=== PATIENT | female | born 1940 ===

== ENCOUNTER 2020-06-11 17:43 | Inpatient (IN) ==
[2020-06-11] MEDS ORDERED: NOREPINEPHRINE 4 MG/4 ML VIAL IV ONE (19:43)
[2020-06-11] MEDS ORDERED: EPINEPHrine 1 MG/ML VIAL ONE (19:46)
[2020-06-11 20:26] LABS: Basophils # 0.1 10*3/uL (0.0-0.2); Basophils % 0.5 % (0.0-0.8); Hematocrit 33.4 VOL% (35.7-47.0); Hemoglobin 9.9 GM/DL (12.0-16.0); Immature Granulocytes % 3.8 %; Lymphocytes # 2.1 10*3/uL (1.4-4.0); Lymphocytes % 10.2 % (21.3-54.2); Mean Corpuscular HGB Conc 29.6 GM/DL (32-36); Mean Corpuscular Volume 103.1 FL (87-102); Mean Platelet Volume 10.6 FL (9.6-12.0); Monocytes % 14.6 % (1.7-12.7); Neutrophils % 70.9 % (38.7-73.9); Platelet Count 286 T/CUMM (130-400); Red Blood Count 3.24 MC/CUMM (3.8-5.5); Red Cell Distribution Width 14.6 % (9.3-17.3); White Blood Count 20.9 T/CUMM (4-12)
[2020-06-11 20:27] LABS: ABG Base Excess -22.5 MMOL/L (-2.5-2.5); ABG HCO3 8.4 MMOL/L (20-26); ABG Oxygen Saturation 98.9 % (95-100); ABG PCO2 28.7 MM HG (35-48); ABG TCO2 7.3 MMOL/L (23-27)
[2020-06-11 20:29] LABS: ABG PH 7.024 (7.35-7.45)
[2020-06-11 20:41] LABS: Calcium 7.7 MG/DL (8.5-10.1); Osmolality,Calculated 297.4 MOS/KG (273-304)
[2020-06-11] MEDS: NOREPINEPHRINE 8 MG in SODIUM CHLORIDE 0.9% 242 ML IV PRN (20:48)
[2020-06-11] MEDS ORDERED: ONDANSETRON 4 MG/2 ML VIAL IV PRN (21:06)
[2020-06-11] MEDS ORDERED: ALBUTEROL 2.5 MG/3 ML NEB RESP TX PRN (21:06)
[2020-06-11 21:07] LABS: Anisocytosis 3+; Burr Cells 3+; Lymphocytes 10 % (20-55); Microcytosis 1+; Nucleated Red Blood Cells 1 (0-5); Segmented Neutrophils 78 % (50-85); Total Cells Counted 100
[2020-06-11] MEDS ORDERED: AMIKACIN 500 MG in SODIUM CHLORIDE 0.9% 100 ML IV ONE (22:00)
[2020-06-11] MEDS: SODIUM BICARB INJ 100 MEQ in STERILE WATER INJ 1,000 ML IV SCH (22:39)
[2020-06-11] MEDS: PANTOPRAZOLE 40 MG VIAL IV SCH (23:16)
[2020-06-11] MEDS: FLUDROCORTISONE 0.1 MG TABLET PER TUBE SCH (23:37)
[2020-06-11] MEDS: HYDROCORTISONE 100 MG VIAL IV SCH (23:43)
[2020-06-12 00:13] LABS: Apearance,Urine Turbid (Clear); Bacteria,Urine Many /HPF (Few); Bilirubin,Urine Negative (Negative); Blood, Urine Small mg/dL (Negative); Glucose,Urine (UA) Negative (Negative); Ketones,Urine 5 mg/dL (Negative); Nitrite,Urine Negative (Negative); Protein,Urine 100 MG/DL; RBC,Urine 102 /HPF (0-4); Renal Epithelial Cells,Urine Moderate /HPF (<1); Urine Color Yellow (Yellow); Urine Specific Gravity 1.021 (1.001-1.035); Urine Urobilinogen < 2.0 EU/DL (0.2-1.0); WBC,Urine 6667 /HPF (0-6)
[2020-06-12] MEDS: ENOXAPARIN 30 MG/0.3 ML SYRINGE SUBCUT SCH ×2 (00:22→20:55)
[2020-06-12] MEDS: MEROPENEM 500 MG in SODIUM CHLORIDE 0.9% 100 ML IV SCH ×3 (00:24→21:00)
[2020-06-12] MEDS: NOREPINEPHRINE 8 MG in SODIUM CHLORIDE 0.9% 242 ML IV PRN ×2 (00:33→09:29)
[2020-06-12 04:19] LABS: Basophils % 0.1 % (0.0-0.8); Hematocrit 34.2 VOL% (35.7-47.0); Hemoglobin 10.5 GM/DL (12.0-16.0); Immature Granulocytes % 4.4 %; Immature Granulocytes Absolute 0.77 #; Lymphocytes # 0.8 10*3/uL (1.4-4.0); Lymphocytes % 4.6 % (21.3-54.2); Mean Corpuscular HGB Conc 30.7 GM/DL (32-36); Mean Corpuscular Volume 100.9 FL (87-102); Mean Platelet Volume 10.9 FL (9.6-12.0); Monocytes % 16.3 % (1.7-12.7); Neutrophils % 74.6 % (38.7-73.9); Platelet Count 297 T/CUMM (130-400); Red Blood Count 3.39 MC/CUMM (3.8-5.5); Red Cell Distribution Width 14.6 % (9.3-17.3); White Blood Count 17.3 T/CUMM (4-12)
[2020-06-12 04:32] LABS: INR 1.2; PT Patient Result 12.5 SECS (9.8-11.9)
[2020-06-12 04:33] LABS: Albumin 2.6 G/DL (3.4-5.0); Bilirubin,Total 0.5 MG/DL (0.2-1.0); Calcium 7.6 MG/DL (8.5-10.1); Osmolality,Calculated 300.4 MOS/KG (273-304); Total Protein 5.7 G/DL (6.4-8.3)
[2020-06-12 04:38] LABS: Troponin I 0.407 NG/ML (0.00-0.045)
[2020-06-12 06:01] LABS: Band Neutrophils 7 % (0-10); Lymphocytes 9 % (20-55); Metamyelocytes 9 %; Myelocytes 3 %; Nucleated Red Blood Cells 0 (0-5); Platelet Estimate Normal; Segmented Neutrophils 58 % (50-85); Total Cells Counted 100
[2020-06-12 06:02] LABS: Anisocytosis 2+; Macrocytosis 2+
[2020-06-12 06:15] LABS: ABG Base Excess -22.1 MMOL/L (-2.5-2.5); ABG HCO3 8.6 MMOL/L (20-26); ABG Oxygen Saturation 99.1 % (95-100); ABG PCO2 24.1 MM HG (35-48); ABG TCO2 6.8 MMOL/L (23-27)
[2020-06-12 06:21] LABS: ABG PH 7.072 (7.35-7.45)
[2020-06-12] MEDS: LEVOTHYROXINE 100 MCG VIAL IV SCH (07:19)
[2020-06-12] MEDS: HYDROCORTISONE 100 MG VIAL IV SCH ×3 (07:20→23:32)
[2020-06-12] MEDS: FLUDROCORTISONE 0.1 MG TABLET PER TUBE SCH ×2 (08:56→20:55)
[2020-06-12] MEDS ORDERED: PANTOPRAZOLE 40 MG TABLET PO SCH (09:00)
[2020-06-12] MEDS ORDERED: DEXTROSE 10% 250 ML BAG IV PRN (09:12)
[2020-06-12] MEDS ORDERED: GLUCAGON 1 MG VIAL IM PRN (09:12)
[2020-06-12] MEDS: SODIUM BICARB INJ 100 MEQ in STERILE WATER INJ 1,000 ML IV SCH (09:28)
[2020-06-12] MEDS: INSULIN LISPRO 100 UNIT/ML SUBCUT SCH ×3 (12:22→23:39)
[2020-06-12 12:38] LABS: ABG Base Excess -21.5 MMOL/L (-2.5-2.5); ABG HCO3 6.7 MMOL/L (20-26); ABG Oxygen Saturation 98.7 % (95-100); ABG TCO2 7.4 MMOL/L (23-27)
[2020-06-12 12:39] LABS: ABG PH 7.085 (7.35-7.45)
[2020-06-12] MEDS: NOREPINEPHRINE 16 MG in SODIUM CHLORIDE 0.9% 234 ML IV PRN ×2 (13:15→19:54)
[2020-06-12] MEDS ORDERED: SODIUM BICARBONATE 50 MEQ/50 ML VIAL IV ONE (13:20)
[2020-06-12 15:15] LABS: Calcium 7.4 MG/DL (8.5-10.1); Osmolality,Calculated 296.7 MOS/KG (273-304)
[2020-06-12] MEDS: SODIUM BICARB INJ 150 MEQ in STERILE WATER INJ 850 ML IV SCH (16:01)
[2020-06-12] MEDS: PANTOPRAZOLE 40 MG VIAL IV SCH (20:55)
[2020-06-13] MEDS: NOREPINEPHRINE 16 MG in SODIUM CHLORIDE 0.9% 234 ML IV PRN ×4 (01:51→22:02)
[2020-06-13] MEDS: SODIUM BICARB INJ 150 MEQ in STERILE WATER INJ 850 ML IV SCH ×4 (03:33→22:09)
[2020-06-13 05:11] LABS: Basophils # 0.1 10*3/uL (0.0-0.2); Basophils % 0.4 % (0.0-0.8); Hematocrit 27.7 VOL% (35.7-47.0); Hemoglobin 8.5 GM/DL (12.0-16.0); Immature Granulocytes Absolute 1.32 #; Lymphocytes # 0.7 10*3/uL (1.4-4.0); Lymphocytes % 2.7 % (21.3-54.2); Mean Corpuscular HGB Conc 30.7 GM/DL (32-36); Mean Corpuscular Volume 102.2 FL (87-102); Mean Platelet Volume 10.8 FL (9.6-12.0); Monocytes % 11.8 % (1.7-12.7); NRBC # 0.11 10*3/uL; Neutrophils % 80.1 % (38.7-73.9); Platelet Count 226 T/CUMM (130-400); Red Blood Count 2.71 MC/CUMM (3.8-5.5); Red Cell Distribution Width 15.1 % (9.3-17.3); White Blood Count 26.6 T/CUMM (4-12)
[2020-06-13 05:16] LABS: ABG Base Excess -22.8 MMOL/L (-2.5-2.5); ABG HCO3 8.2 MMOL/L (20-26); ABG Oxygen Saturation 98.7 % (95-100); ABG PCO2 21.2 MM HG (35-48)
[2020-06-13 05:23] LABS: ABG PH 7.075 (7.35-7.45)
[2020-06-13 05:33] LABS: Band Neutrophils 5 % (0-10); Burr Cells Slight; Hypochromasia 1+; Lymphocytes 4 % (20-55); Ovalocytes Slight; Platelet Estimate Adequate; Segmented Neutrophils 81 % (50-85); Total Cells Counted 100
[2020-06-13 05:34] LABS: Microcytosis 1+
[2020-06-13 05:42] LABS: Albumin 2.1 G/DL (3.4-5.0); Bilirubin,Total 0.8 MG/DL (0.2-1.0); Osmolality,Calculated 297.7 MOS/KG (273-304); Total Protein 5.2 G/DL (6.4-8.3)
[2020-06-13] MEDS: LEVOTHYROXINE 100 MCG VIAL IV SCH (06:08)
[2020-06-13] MEDS: INSULIN LISPRO 100 UNIT/ML SUBCUT SCH ×3 (06:08→18:37)
[2020-06-13] MEDS: HYDROCORTISONE 100 MG VIAL IV SCH ×3 (06:10→23:40)
[2020-06-13] MEDS ORDERED: SODIUM CHLORIDE 0.9% 1,000 ML IV ONE (08:06)
[2020-06-13] MEDS: PHENYLEPHRINE DRIP 40 MG/250 ML PREMIX IV PRN ×3 (08:38→15:21)
[2020-06-13] MEDS: FLUDROCORTISONE 0.1 MG TABLET PER TUBE SCH ×2 (09:16→21:06)
[2020-06-13] MEDS ORDERED: HEPARIN 5,000 UNIT/1 ML VIAL ONE (12:56)
[2020-06-13] MEDS ORDERED: BUPIVACAINE 0.25% /EPI 10 ML VIAL ONE (12:56)
[2020-06-13] MEDS ORDERED: LIDOCAINE 1%/EPI INJ 20 ML VIAL ONE (12:56)
[2020-06-13] MEDS ORDERED: TISSUE ADHESIVE 1 EACH APPLICATOR TOP ONE (12:56)
[2020-06-13] MEDS ORDERED: SODIUM CHLORIDE 0.9% 1,000 ML IV PRN (13:23)
[2020-06-13] MEDS ORDERED: VASOPRESSIN 20 UNITS/ML VIAL ONE (14:04)
[2020-06-13 14:07] LABS: ABG Base Excess -13.9 MMOL/L (-2.5-2.5); ABG HCO3 13.5 MMOL/L (20-26); ABG Oxygen Saturation 99.4 % (95-100); ABG PCO2 45.3 MM HG (35-48); ABG TCO2 14.4 MMOL/L (23-27); Glucose Heart Surgery 121 MG/DL (74-106); Hematocrit Heart Surgery 22.5 PERCENT (37-47); Hemoglobin Heart Surgery 7.2 G/DL (12.0-16.0); Ionized Calcium Arterial 1.03 MMOL/L (1.21-1.46); PCO2 Patient Temp Arterial 45.3 MMHG; Patient Temperature 37 CELCIUS; Potassium Heart/CVR 4.3 MMOL/L (3.5-5.1); Sodium Heart/CVR 144 MMOL/L (135-145)
[2020-06-13] MEDS ORDERED: ALBUMIN 5% 12.5 GM/250 ML VIAL IV ONE (14:44)
[2020-06-13] MEDS ORDERED: SODIUM BICARBONATE 50 MEQ/50 ML VIAL IV ONE (14:44)
[2020-06-13] MEDS ORDERED: CALCIUM CHLORIDE 1,000 MG/10 ML VIAL IV ONE (14:44)
[2020-06-13] MEDS ORDERED: SEVOFLURANE 1 UNIT/15 MINUTE INH ONE (14:44)
[2020-06-13] MEDS ORDERED: SODIUM CHLORIDE 0.9% 2,000 ML IV ONE (14:45)
[2020-06-13] MEDS ORDERED: MIDAZOLAM 2 MG/2 ML VIAL ONE (14:45)
[2020-06-13] MEDS ORDERED: SODIUM CHLORIDE 0.9% 500 ML IV ONE (14:45)
[2020-06-13] MEDS ORDERED: ROCURONIUM 100 MG/10 ML VIAL IV ONE (14:45)
[2020-06-13] MEDS ORDERED: EPINEPHrine 1 MG/ML VIAL ONE (14:45)
[2020-06-13] MEDS ORDERED: PHENYLEPHRINE 10 MG/1 ML VIAL IV ONE ×2 (14:45)
[2020-06-13] MEDS ORDERED: HEPARIN 10,000 UNIT/10 ML VIAL IV SCH (16:00)
[2020-06-13 17:00] LABS: Hepatitis B Core IgM Quant 0.12 Index; Hepatitis B Surface Ag Quant < 0.10 Index; Hepatitis B Surface Ag Result Negative (Negative); Hepatitis C Virus Ab Quant 0.05 Index; Hepatitis C Virus Ab Result Negative (Negative)
[2020-06-13] MEDS: PHENYLEPHRINE INJ 160 MG in SODIUM CHLORIDE 0.9% 234 ML IV PRN (19:00)
[2020-06-13] MEDS: ENOXAPARIN 30 MG/0.3 ML SYRINGE SUBCUT SCH (21:06)
[2020-06-13] MEDS: PANTOPRAZOLE 40 MG VIAL IV SCH (21:06)
[2020-06-13] MEDS: MEROPENEM 500 MG in SODIUM CHLORIDE 0.9% 100 ML IV SCH (21:06)
[2020-06-13] MEDS: MIDAZOLAM 100 MG in SODIUM CHLORIDE 0.9% 80 ML IV PRN (22:00)
[2020-06-14 00:23] LABS: ABG Base Excess -13.4 MMOL/L (-2.5-2.5); ABG HCO3 11.4 MMOL/L (20-26); ABG Oxygen Saturation 98.6 % (95-100); ABG PCO2 23.4 MM HG (35-48); ABG PH 7.304 (7.35-7.45); ABG PO2 168.8 MM HG (80-95); ABG TCO2 12.1 MMOL/L (23-27); Glucose Heart Surgery 68 MG/DL (74-106); Hemoglobin Heart Surgery 10.2 G/DL (12.0-16.0); Potassium Heart/CVR 3.8 MMOL/L (3.5-5.1)
[2020-06-14] MEDS: INSULIN LISPRO 100 UNIT/ML SUBCUT SCH ×4 (00:39→17:10)
[2020-06-14] MEDS ORDERED: SODIUM BICARBONATE 50 MEQ/50 ML VIAL IV ONE ×2 (00:42→06:19)
[2020-06-14] MEDS ORDERED: ALBUMIN 25% 25 GM in PREMIX 1 EACH IV ONE (01:19)
[2020-06-14] MEDS ORDERED: SODIUM CHLORIDE 0.9% 500 ML IV ONE (01:56)
[2020-06-14] MEDS ORDERED: DEXTROSE 50% 25 GM/50 ML VIAL IV ONE (02:17)
[2020-06-14] MEDS ORDERED: ALBUMIN 5% 12.5 GM in PREMIX 1 EACH IV ONE (02:25)
[2020-06-14] MEDS ORDERED: DEXTROSE 50% 25 GM/50 ML VIAL IV PRN (02:26)
[2020-06-14] MEDS ORDERED: ALBUMIN 5% 12.5 GM/250 ML VIAL IV ONE (02:29)
[2020-06-14 05:16] LABS: ABG Base Excess -14.3 MMOL/L (-2.5-2.5); ABG HCO3 13.4 MMOL/L (20-26); ABG Oxygen Saturation 98.2 % (95-100); ABG PH 7.314 (7.35-7.45); ABG TCO2 9.8 MMOL/L (23-27)
[2020-06-14 05:18] LABS: ABG PCO2 20.9 MM HG (35-48)
[2020-06-14 05:20] LABS: Basophils # 0.1 10*3/uL (0.0-0.2); Basophils % 0.5 % (0.0-0.8); Hematocrit 30.3 VOL% (35.7-47.0); Hemoglobin 9.5 GM/DL (12.0-16.0); Immature Granulocytes % 3.4 %; Immature Granulocytes Absolute 0.85 #; Lymphocytes # 0.7 10*3/uL (1.4-4.0); Lymphocytes % 2.8 % (21.3-54.2); Mean Corpuscular HGB Conc 31.4 GM/DL (32-36); Mean Corpuscular Volume 89.1 FL (87-102); Mean Platelet Volume 9.9 FL (9.6-12.0); Monocytes % 7.6 % (1.7-12.7); NRBC # 0.24 10*3/uL; Neutrophils % 85.7 % (38.7-73.9); Platelet Count 139 T/CUMM (130-400); Red Cell Distribution Width 23.6 % (9.3-17.3); White Blood Count 25.2 T/CUMM (4-12)
[2020-06-14 05:37] LABS: Calcium 6.3 MG/DL (8.5-10.1); Osmolality,Calculated 293.4 MOS/KG (273-304)
[2020-06-14 05:39] LABS: Band Neutrophils 5 % (0-10); Lymphocytes 3 % (20-55); Nucleated Red Blood Cells 4 (0-5); Segmented Neutrophils 89 % (50-85); Total Cells Counted 100
[2020-06-14 05:40] LABS: Hypochromasia 1+
[2020-06-14 05:42] LABS: Microcytosis Slight
[2020-06-14] MEDS: LEVOTHYROXINE 100 MCG VIAL IV SCH (06:05)
[2020-06-14] MEDS: SODIUM BICARB INJ 150 MEQ in STERILE WATER INJ 850 ML IV SCH ×4 (06:17→18:19)
[2020-06-14] MEDS: HYDROCORTISONE 100 MG VIAL IV SCH ×3 (06:29→23:56)
[2020-06-14] MEDS: NOREPINEPHRINE 16 MG in SODIUM CHLORIDE 0.9% 234 ML IV PRN ×2 (06:31→22:30)
[2020-06-14] MEDS: FLUDROCORTISONE 0.1 MG TABLET PER TUBE SCH ×2 (09:16→21:23)
[2020-06-14] MEDS ORDERED: AMIODARONE INJ 150 MG in DEXTROSE 5% 100 ML IV ONE (12:26)
[2020-06-14] MEDS ORDERED: AMIODARONE 450 MG/9 ML VIAL IV ONE (12:29)
[2020-06-14] MEDS ORDERED: AMIODARONE 150 MG/3 ML VIAL ONE (12:29)
[2020-06-14] MEDS ORDERED: AMIODARONE INJ 450 MG in DEXTROSE 5% 241 ML IV SCH (12:30)
[2020-06-14] MEDS: MIDAZOLAM 100 MG in SODIUM CHLORIDE 0.9% 80 ML IV PRN (13:55)
[2020-06-14] MEDS: PHENYLEPHRINE INJ 160 MG in SODIUM CHLORIDE 0.9% 234 ML IV PRN (17:20)
[2020-06-14] MEDS: AMIODARONE INJ 450 MG in DEXTROSE 5% 241 ML IV SCH (19:00)
[2020-06-14] MEDS: MEROPENEM 500 MG in SODIUM CHLORIDE 0.9% 100 ML IV SCH (21:23)
[2020-06-14] MEDS: PANTOPRAZOLE 40 MG VIAL IV SCH (21:23)
[2020-06-14] MEDS: ENOXAPARIN 30 MG/0.3 ML SYRINGE SUBCUT SCH (21:23)
[2020-06-15] MEDS: INSULIN LISPRO 100 UNIT/ML SUBCUT SCH ×4 (00:31→18:09)
[2020-06-15] MEDS: AMIODARONE INJ 450 MG in DEXTROSE 5% 241 ML IV SCH ×2 (00:52→13:06)
[2020-06-15] MEDS: PHENYLEPHRINE INJ 160 MG in SODIUM CHLORIDE 0.9% 234 ML IV PRN (01:05)
[2020-06-15] MEDS: SODIUM BICARB INJ 150 MEQ in STERILE WATER INJ 850 ML IV SCH ×2 (02:05→04:19)
[2020-06-15 05:23] LABS: ABG Base Excess -12.4 MMOL/L (-2.5-2.5); ABG HCO3 14.7 MMOL/L (20-26); ABG Oxygen Saturation 94.7 % (95-100); ABG PH 7.413 (7.35-7.45); ABG PO2 76.4 MM HG (80-95); ABG TCO2 9.9 MMOL/L (23-27)
[2020-06-15 05:38] LABS: Basophils # 0.2 10*3/uL (0.0-0.2); Basophils % 0.7 % (0.0-0.8); Hematocrit 29.3 VOL% (35.7-47.0); Hemoglobin 9.6 GM/DL (12.0-16.0); Immature Granulocytes % 6.9 %; Lymphocytes # 0.4 10*3/uL (1.4-4.0); Lymphocytes % 1.8 % (21.3-54.2); Mean Corpuscular HGB Conc 32.8 GM/DL (32-36); Mean Corpuscular Volume 86.9 FL (87-102); Monocytes % 3.9 % (1.7-12.7); NRBC # 0.22 10*3/uL; Neutrophils % 86.7 % (38.7-73.9); Red Blood Count 3.37 MC/CUMM (3.8-5.5); Red Cell Distribution Width 23.7 % (9.3-17.3); White Blood Count 23.2 T/CUMM (4-12)
[2020-06-15 05:39] LABS: Platelet Count 110 T/CUMM (130-400)
[2020-06-15 05:55] LABS: Calcium 6.5 MG/DL (8.5-10.1); Osmolality,Calculated 282.7 MOS/KG (273-304)
[2020-06-15 05:59] LABS: Prealbumin 6.2 MG/DL (20-40)
[2020-06-15 06:27] LABS: Anisocytosis 2+; Band Neutrophils 12 % (0-10); Hypochromasia Slight; Lymphocytes 1 % (20-55); Macrocytosis 2+; Metamyelocytes 4 %; Myelocytes 2 %; Nucleated Red Blood Cells 2 (0-5); Platelet Estimate Decreased; Segmented Neutrophils 75 % (50-85); Total Cells Counted 100
[2020-06-15] MEDS: LEVOTHYROXINE 100 MCG VIAL IV SCH (06:27)
[2020-06-15] MEDS: HYDROCORTISONE 100 MG VIAL IV SCH ×3 (06:28→23:47)
[2020-06-15] MEDS: FLUDROCORTISONE 0.1 MG TABLET PER TUBE SCH ×2 (09:24→20:39)
[2020-06-15] MEDS ORDERED: MAGNESIUM SULF RIDER 2 GM in PREMIX 1 EACH IV ONE (11:31)
[2020-06-15] MEDS ORDERED: SODIUM BICARBONATE 50 MEQ/50 ML VIAL IV ONE (11:46)
[2020-06-15] MEDS ORDERED: MAGNESIUM SULF RIDER 50 ML IV ONE (11:58)
[2020-06-15] MEDS: MIDAZOLAM 100 MG in SODIUM CHLORIDE 0.9% 80 ML IV PRN (15:51)
[2020-06-15] MEDS: NOREPINEPHRINE 16 MG in SODIUM CHLORIDE 0.9% 234 ML IV PRN (16:13)
[2020-06-15] MEDS ORDERED: DIGOXIN 0.5 MG/2 ML AMP IV ONE (17:55)
[2020-06-15 17:58] LABS: ABG Base Excess -2.7 MMOL/L (-2.5-2.5); ABG HCO3 22.2 MMOL/L (20-26); ABG Oxygen Saturation 98.7 % (95-100); ABG PH 7.554 (7.35-7.45); ABG TCO2 16.3 MMOL/L (23-27)
[2020-06-15] MEDS ORDERED: DIGOXIN 0.5 MG/2 ML AMP ONE (17:58)
[2020-06-15 18:13] LABS: ABG PCO2 20.6 MM HG (35-48)
[2020-06-15] MEDS ORDERED: MORPHINE 4 MG/1 ML VIAL IV ONE (18:28)
[2020-06-15] MEDS: ENOXAPARIN 30 MG/0.3 ML SYRINGE SUBCUT SCH (20:39)
[2020-06-15] MEDS: PANTOPRAZOLE 40 MG VIAL IV SCH (20:39)
[2020-06-15] MEDS: MEROPENEM 500 MG in SODIUM CHLORIDE 0.9% 100 ML IV SCH (20:55)
[2020-06-16] MEDS: INSULIN LISPRO 100 UNIT/ML SUBCUT SCH ×4 (00:17→17:52)
[2020-06-16] MEDS: AMIODARONE INJ 450 MG in DEXTROSE 5% 241 ML IV SCH ×5 (02:50→20:59)
[2020-06-16 04:43] LABS: Basophils # 0.2 10*3/uL (0.0-0.2); Basophils % 0.7 % (0.0-0.8); Hematocrit 29.3 VOL% (35.7-47.0); Hemoglobin 9.7 GM/DL (12.0-16.0); Immature Granulocytes % 1.3 %; Immature Granulocytes Absolute 0.31 #; Lymphocytes # 0.4 10*3/uL (1.4-4.0); Lymphocytes % 1.6 % (21.3-54.2); Mean Corpuscular HGB Conc 33.1 GM/DL (32-36); Mean Corpuscular Volume 84.7 FL (87-102); Mean Platelet Volume 9.8 FL (9.6-12.0); NRBC # 0.09 10*3/uL; Neutrophils % 93.4 % (38.7-73.9); Platelet Count 71 T/CUMM (130-400); Red Blood Count 3.46 MC/CUMM (3.8-5.5); White Blood Count 23.1 T/CUMM (4-12)
[2020-06-16 04:55] LABS: ABG Base Excess -2.8 MMOL/L (-2.5-2.5); ABG Oxygen Saturation 96.1 % (95-100); ABG PCO2 23.1 MM HG (35-48); ABG PH 7.523 (7.35-7.45); ABG TCO2 17.4 MMOL/L (23-27)
[2020-06-16 05:14] LABS: INR 1.4; PT Patient Result 14.6 SECS (9.8-11.9)
[2020-06-16 05:24] LABS: Albumin 1.4 G/DL (3.4-5.0); Bilirubin,Total 1.2 MG/DL (0.2-1.0); Calcium 6.6 MG/DL (8.5-10.1); Total Protein 4.5 G/DL (6.4-8.3)
[2020-06-16 06:11] LABS: Anisocytosis 1+; Band Neutrophils 3 % (0-10); Lymphocytes 2 % (20-55); Segmented Neutrophils 94 % (50-85); Total Cells Counted 100
[2020-06-16 06:12] LABS: Platelet Estimate Decreased; Tear Drop Cells 1+
[2020-06-16] MEDS: HYDROCORTISONE 100 MG VIAL IV SCH ×2 (06:42→15:08)
[2020-06-16] MEDS: LEVOTHYROXINE 100 MCG VIAL IV SCH (06:44)
[2020-06-16] MEDS: FLUDROCORTISONE 0.1 MG TABLET PER TUBE SCH ×2 (09:32→21:15)
[2020-06-16] MEDS ORDERED: ALBUMIN 25% 25 GM in PREMIX 1 EACH IV ONE (11:02)
[2020-06-16] MEDS: DEXMEDETOMIDINE 200 MCG in SODIUM CHLORIDE 0.9% 48 ML IV PRN ×3 (12:00→22:14)
[2020-06-16] MEDS: ENOXAPARIN 30 MG/0.3 ML SYRINGE SUBCUT SCH (21:14)
[2020-06-16] MEDS: MEROPENEM 500 MG in SODIUM CHLORIDE 0.9% 100 ML IV SCH (21:14)
[2020-06-16] MEDS: PANTOPRAZOLE 40 MG VIAL IV SCH (21:15)
[2020-06-17] MEDS: INSULIN LISPRO 100 UNIT/ML SUBCUT SCH ×4 (00:14→18:23)
[2020-06-17] MEDS: HYDROCORTISONE 100 MG VIAL IV SCH ×4 (00:14→21:51)
[2020-06-17] MEDS: DEXMEDETOMIDINE 200 MCG in SODIUM CHLORIDE 0.9% 48 ML IV PRN ×2 (03:26→16:53)
[2020-06-17 04:33] LABS: ABG Base Excess -7.3 MMOL/L (-2.5-2.5); ABG HCO3 14.6 MMOL/L (20-26); ABG PH 7.482 (7.35-7.45); ABG PO2 129.4 MM HG (80-95); ABG TCO2 15.2 MMOL/L (23-27)
[2020-06-17 04:40] LABS: ABG PCO2 19.9 MM HG (35-48)
[2020-06-17 04:41] LABS: Basophils # 0.2 10*3/uL (0.0-0.2); Basophils % 0.6 % (0.0-0.8); Hematocrit 29.5 VOL% (35.7-47.0); Hemoglobin 9.9 GM/DL (12.0-16.0); Immature Granulocytes % 1.9 %; Immature Granulocytes Absolute 0.48 #; Lymphocytes # 0.4 10*3/uL (1.4-4.0); Lymphocytes % 1.4 % (21.3-54.2); Mean Corpuscular HGB Conc 33.6 GM/DL (32-36); Monocytes % 2.9 % (1.7-12.7); NRBC # 0.09 10*3/uL; Neutrophils % 93.2 % (38.7-73.9); Platelet Count 55 T/CUMM (130-400); Red Blood Count 3.51 MC/CUMM (3.8-5.5); Red Cell Distribution Width 22.9 % (9.3-17.3); White Blood Count 24.8 T/CUMM (4-12)
[2020-06-17 04:56] LABS: Albumin 1.7 G/DL (3.4-5.0); Bilirubin,Total 1.5 MG/DL (0.2-1.0); Calcium 6.7 MG/DL (8.5-10.1); Osmolality,Calculated 282.1 MOS/KG (273-304); Total Protein 4.8 G/DL (6.4-8.3)
[2020-06-17] MEDS: NOREPINEPHRINE 16 MG in SODIUM CHLORIDE 0.9% 234 ML IV PRN (05:11)
[2020-06-17] MEDS: LEVOTHYROXINE 100 MCG VIAL IV SCH (05:48)
[2020-06-17] MEDS: AMIODARONE INJ 450 MG in DEXTROSE 5% 241 ML IV SCH ×4 (06:15→15:50)
[2020-06-17 06:48] LABS: Band Neutrophils 2 % (0-10); Lymphocytes 7 % (20-55); Metamyelocytes 3 %; Segmented Neutrophils 82 % (50-85); Total Cells Counted 100
[2020-06-17 06:49] LABS: Ovalocytes Few; Platelet Estimate Decreased; Polychromasia Slight; Schistocytes Few
[2020-06-17] MEDS: POLYETHYLENE GLYCOL POWDER 17 GM PACK PO SCH (09:11)
[2020-06-17] MEDS: FLUDROCORTISONE 0.1 MG TABLET PER TUBE SCH ×2 (09:11→21:52)
[2020-06-17] MEDS: DOCUSATE SODIUM 100 MG/10 ML UDCUP PO SCH ×2 (09:11→21:52)
[2020-06-17 11:31] LABS: ABG Base Excess -8.1 MMOL/L (-2.5-2.5); ABG HCO3 17.8 MMOL/L (20-26); ABG Oxygen Saturation 98.4 % (95-100); ABG PH 7.469 (7.35-7.45)
[2020-06-17 11:33] LABS: ABG PCO2 19.6 MM HG (35-48)
[2020-06-17 15:40] LABS: ABG Base Excess -8.5 MMOL/L (-2.5-2.5); ABG HCO3 17.6 MMOL/L (20-26); ABG Oxygen Saturation 98.2 % (95-100); ABG PH 7.463 (7.35-7.45); ABG TCO2 12.1 MMOL/L (23-27)
[2020-06-17] MEDS: ENOXAPARIN 30 MG/0.3 ML SYRINGE SUBCUT SCH (21:51)
[2020-06-17] MEDS: PANTOPRAZOLE 40 MG VIAL IV SCH (21:52)
[2020-06-17] MEDS: MEROPENEM 500 MG in SODIUM CHLORIDE 0.9% 100 ML IV SCH (21:52)
[2020-06-18] MEDS: AMIODARONE INJ 450 MG in DEXTROSE 5% 241 ML IV SCH ×2 (00:15→08:30)
[2020-06-18] MEDS: INSULIN LISPRO 100 UNIT/ML SUBCUT SCH ×4 (01:55→17:21)
[2020-06-18] MEDS: DEXMEDETOMIDINE 200 MCG in SODIUM CHLORIDE 0.9% 48 ML IV PRN ×3 (03:49→21:29)
[2020-06-18 05:03] LABS: ABG Base Excess -12.5 MMOL/L (-2.5-2.5); ABG HCO3 14.7 MMOL/L (20-26); ABG PH 7.413 (7.35-7.45); ABG TCO2 9.7 MMOL/L (23-27)
[2020-06-18 05:06] LABS: ABG PCO2 16.7 MM HG (35-48)
[2020-06-18 05:13] LABS: Basophils # 0.2 10*3/uL (0.0-0.2); Basophils % 0.7 % (0.0-0.8); Hematocrit 30.7 VOL% (35.7-47.0); Hemoglobin 9.9 GM/DL (12.0-16.0); Immature Granulocytes % 4.3 %; Immature Granulocytes Absolute 1.09 #; Lymphocytes # 0.5 10*3/uL (1.4-4.0); Mean Corpuscular HGB Conc 32.2 GM/DL (32-36); Monocytes % 3.2 % (1.7-12.7); NRBC # 0.07 10*3/uL; Neutrophils % 89.8 % (38.7-73.9); Platelet Count 43 T/CUMM (130-400); Red Blood Count 3.57 MC/CUMM (3.8-5.5); Red Cell Distribution Width 22.8 % (9.3-17.3); White Blood Count 25.6 T/CUMM (4-12)
[2020-06-18 05:23] LABS: Albumin 1.5 G/DL (3.4-5.0); Bilirubin,Total 1.2 MG/DL (0.2-1.0); Calcium 6.3 MG/DL (8.5-10.1); Osmolality,Calculated 287.1 MOS/KG (273-304); Prealbumin 6.9 MG/DL (20-40); Total Protein 4.4 G/DL (6.4-8.3)
[2020-06-18 05:36] LABS: Band Neutrophils 1 % (0-10); Hypochromasia 1+; Lymphocytes 1 % (20-55); Platelet Estimate Decreased; Segmented Neutrophils 96 % (50-85); Total Cells Counted 100
[2020-06-18] MEDS: HYDROCORTISONE 100 MG VIAL IV SCH ×3 (05:48→21:59)
[2020-06-18] MEDS: LEVOTHYROXINE 100 MCG VIAL IV SCH (05:48)
[2020-06-18 05:58] LABS: INR 1.6; PT Patient Result 16.5 SECS (9.8-11.9); Partial Thromboplastin Time 52.5 SECS (23.9-33.8)
[2020-06-18] MEDS: FLUDROCORTISONE 0.1 MG TABLET PER TUBE SCH ×2 (08:45→22:00)
[2020-06-18] MEDS: DOCUSATE SODIUM 100 MG/10 ML UDCUP PO SCH ×2 (08:45→21:59)
[2020-06-18] MEDS: POLYETHYLENE GLYCOL POWDER 17 GM PACK PO SCH (08:45)
[2020-06-18] MEDS: AMIODARONE 200 MG TABLET PER TUBE SCH ×2 (12:20→21:59)
[2020-06-18] MEDS ORDERED: ALBUMIN 25% 25 GM in PREMIX 1 EACH IV ONE (13:25)
[2020-06-18] MEDS: SODIUM BICARBONATE 650 MG TABLET PER TUBE SCH ×2 (15:35→21:59)
[2020-06-18] MEDS: MEROPENEM 500 MG in SODIUM CHLORIDE 0.9% 100 ML IV SCH (21:59)
[2020-06-18] MEDS: ENOXAPARIN 30 MG/0.3 ML SYRINGE SUBCUT SCH (21:59)
[2020-06-18] MEDS: PANTOPRAZOLE 40 MG VIAL IV SCH (22:00)
[2020-06-19] MEDS: INSULIN LISPRO 100 UNIT/ML SUBCUT SCH ×4 (01:00→18:27)
[2020-06-19 03:46] LABS: ABG Base Excess 0.6 MMOL/L (-2.5-2.5); ABG Oxygen Saturation 99.3 % (95-100); ABG PCO2 27.6 MM HG (35-48); ABG PH 7.524 (7.35-7.45); ABG TCO2 20.9 MMOL/L (23-27)
[2020-06-19 04:01] LABS: Basophils # 0.1 10*3/uL (0.0-0.2); Basophils % 0.8 % (0.0-0.8); Hematocrit 25.1 VOL% (35.7-47.0); Hemoglobin 8.6 GM/DL (12.0-16.0); Immature Granulocytes % 6.4 %; Immature Granulocytes Absolute 1.19 #; Lymphocytes # 0.5 10*3/uL (1.4-4.0); Lymphocytes % 2.8 % (21.3-54.2); Mean Corpuscular HGB Conc 34.3 GM/DL (32-36); Mean Corpuscular Volume 82.8 FL (87-102); Monocytes % 2.2 % (1.7-12.7); NRBC # 0.05 10*3/uL; Neutrophils % 87.8 % (38.7-73.9); Red Blood Count 3.03 MC/CUMM (3.8-5.5); Red Cell Distribution Width 22.4 % (9.3-17.3); White Blood Count 18.6 T/CUMM (4-12)
[2020-06-19 04:09] LABS: Platelet Count 19 T/CUMM (130-400)
[2020-06-19 04:20] LABS: Calcium 7.5 MG/DL (8.5-10.1); Osmolality,Calculated 285.1 MOS/KG (273-304)
[2020-06-19 04:46] LABS: Hypochromasia 1+; Lymphocytes 1 % (20-55); Microcytosis 1+; Segmented Neutrophils 97 % (50-85); Spherocytes Slight; Total Cells Counted 100
[2020-06-19 04:47] LABS: Ovalocytes Slight; Platelet Estimate Decreased
[2020-06-19] MEDS: DEXMEDETOMIDINE 200 MCG in SODIUM CHLORIDE 0.9% 48 ML IV PRN ×2 (06:19→15:08)
[2020-06-19] MEDS: HYDROCORTISONE 100 MG VIAL IV SCH ×3 (06:20→21:44)
[2020-06-19] MEDS: LEVOTHYROXINE 100 MCG VIAL IV SCH (06:21)
[2020-06-19] MEDS: SODIUM BICARBONATE 650 MG TABLET PER TUBE SCH ×3 (08:49→21:45)
[2020-06-19] MEDS: DOCUSATE SODIUM 100 MG/10 ML UDCUP PO SCH ×2 (08:49→21:24)
[2020-06-19] MEDS: POLYETHYLENE GLYCOL POWDER 17 GM PACK PO SCH (08:49)
[2020-06-19] MEDS: FLUDROCORTISONE 0.1 MG TABLET PER TUBE SCH ×2 (08:49→21:45)
[2020-06-19] MEDS: AMIODARONE 200 MG TABLET PER TUBE SCH ×2 (08:49→21:45)
[2020-06-19] MEDS: ENOXAPARIN 30 MG/0.3 ML SYRINGE SUBCUT SCH (21:25)
[2020-06-19] MEDS: PANTOPRAZOLE 40 MG VIAL IV SCH (21:45)
[2020-06-19] MEDS: MEROPENEM 500 MG in SODIUM CHLORIDE 0.9% 100 ML IV SCH (21:46)
[2020-06-20] MEDS: INSULIN LISPRO 100 UNIT/ML SUBCUT SCH ×4 (00:06→18:09)
[2020-06-20] MEDS: DEXMEDETOMIDINE 200 MCG in SODIUM CHLORIDE 0.9% 48 ML IV PRN ×3 (00:08→18:10)
[2020-06-20 04:56] LABS: ABG Base Excess 6.2 MMOL/L (-2.5-2.5); ABG HCO3 29.4 MMOL/L (20-26); ABG PCO2 36.5 MM HG (35-48); ABG PH 7.524 (7.35-7.45); ABG PO2 124.4 MM HG (80-95); ABG TCO2 30.5 MMOL/L (23-27); Hematocrit 24.1 VOL% (35.7-47.0); Hemoglobin 8.5 GM/DL (12.0-16.0); Immature Granulocytes % 2.9 %; Immature Granulocytes Absolute 0.49 #; Lymphocytes # 0.4 10*3/uL (1.4-4.0); Lymphocytes % 2.5 % (21.3-54.2); Mean Corpuscular HGB Conc 35.3 GM/DL (32-36); Mean Corpuscular Volume 80.3 FL (87-102); Monocytes % 4.8 % (1.7-12.7); NRBC # 0.03 10*3/uL; Neutrophils % 89.8 % (38.7-73.9); Red Cell Distribution Width 22.7 % (9.3-17.3); White Blood Count 16.9 T/CUMM (4-12)
[2020-06-20 05:06] LABS: Platelet Count 7 T/CUMM (130-400)
[2020-06-20 05:10] LABS: Calcium 7.3 MG/DL (8.5-10.1); Osmolality,Calculated 292.1 MOS/KG (273-304)
[2020-06-20 05:19] LABS: Hypochromasia 1+; Lymphocytes 4 % (20-55); Platelet Estimate Decreased; Segmented Neutrophils 92 % (50-85); Total Cells Counted 100
[2020-06-20 05:20] LABS: Microcytosis 1+; Ovalocytes Slight
[2020-06-20] MEDS: HYDROCORTISONE 100 MG VIAL IV SCH ×3 (06:10→23:32)
[2020-06-20] MEDS: LEVOTHYROXINE 100 MCG VIAL IV SCH (06:10)
[2020-06-20] MEDS: DOCUSATE SODIUM 100 MG/10 ML UDCUP PO SCH ×2 (08:42→23:35)
[2020-06-20] MEDS: FLUDROCORTISONE 0.1 MG TABLET PER TUBE SCH ×2 (08:43→23:32)
[2020-06-20] MEDS: AMIODARONE 200 MG TABLET PER TUBE SCH ×2 (08:43→23:32)
[2020-06-20] MEDS: SODIUM BICARBONATE 650 MG TABLET PER TUBE SCH ×3 (08:43→23:32)
[2020-06-20] MEDS: POLYETHYLENE GLYCOL POWDER 17 GM PACK PO SCH (08:43)
[2020-06-20] MEDS: MEROPENEM 500 MG in SODIUM CHLORIDE 0.9% 100 ML IV SCH (22:30)
[2020-06-20] MEDS: PANTOPRAZOLE 40 MG VIAL IV SCH (23:33)
[2020-06-20] MEDS: ENOXAPARIN 30 MG/0.3 ML SYRINGE SUBCUT SCH (23:35)
[2020-06-21] MEDS: INSULIN LISPRO 100 UNIT/ML SUBCUT SCH ×4 (02:19→18:41)
[2020-06-21] MEDS: DEXMEDETOMIDINE 200 MCG in SODIUM CHLORIDE 0.9% 48 ML IV PRN ×2 (03:03→11:20)
[2020-06-21 05:27] LABS: ABG Base Excess 6.2 MMOL/L (-2.5-2.5); ABG HCO3 29.8 MMOL/L (20-26); ABG Oxygen Saturation 97.1 % (95-100); ABG PCO2 39.4 MM HG (35-48); ABG PH 7.497 (7.35-7.45); ABG PO2 104.6 MM HG (80-95)
[2020-06-21 05:28] LABS: Basophils # 0.1 10*3/uL (0.0-0.2); Basophils % 0.6 % (0.0-0.8); Eosinophils % 0.1 % (0.00-10.9); Hematocrit 24.6 VOL% (35.7-47.0); Hemoglobin 8.4 GM/DL (12.0-16.0); Immature Granulocytes % 5.7 %; Immature Granulocytes Absolute 1.01 #; Lymphocytes # 0.4 10*3/uL (1.4-4.0); Lymphocytes % 2.4 % (21.3-54.2); Mean Corpuscular HGB Conc 34.1 GM/DL (32-36); Mean Corpuscular Volume 83.1 FL (87-102); Monocytes % 8.1 % (1.7-12.7); NRBC # 0.03 10*3/uL; Neutrophils % 83.1 % (38.7-73.9); Red Blood Count 2.96 MC/CUMM (3.8-5.5); Red Cell Distribution Width 22.6 % (9.3-17.3); White Blood Count 17.6 T/CUMM (4-12)
[2020-06-21 05:32] LABS: Platelet Count 20 T/CUMM (130-400)
[2020-06-21 05:40] LABS: Calcium 7.8 MG/DL (8.5-10.1); Osmolality,Calculated 291.8 MOS/KG (273-304)
[2020-06-21] MEDS: HYDROCORTISONE 100 MG VIAL IV SCH ×3 (05:53→21:32)
[2020-06-21] MEDS: LEVOTHYROXINE 100 MCG VIAL IV SCH (05:54)
[2020-06-21 05:57] LABS: Band Neutrophils 4 % (0-10); Eosinophils 1 % (0-10); Hypochromasia 1+; Lymphocytes 2 % (20-55); Metamyelocytes 1 %; Microcytosis 1+; Segmented Neutrophils 83 % (50-85); Total Cells Counted 100
[2020-06-21 05:58] LABS: Platelet Estimate Decreased
[2020-06-21] MEDS: AMIODARONE 200 MG TABLET PER TUBE SCH ×2 (08:40→21:32)
[2020-06-21] MEDS: FLUDROCORTISONE 0.1 MG TABLET PER TUBE SCH ×2 (08:40→21:32)
[2020-06-21] MEDS: SODIUM BICARBONATE 650 MG TABLET PER TUBE SCH ×3 (08:40→21:31)
[2020-06-21] MEDS: POLYETHYLENE GLYCOL POWDER 17 GM PACK PO SCH (08:40)
[2020-06-21] MEDS: DOCUSATE SODIUM 100 MG/10 ML UDCUP PO SCH ×2 (08:40→21:31)
[2020-06-21] MEDS ORDERED: DEXMEDETOMIDINE 400 MCG in SODIUM CHLORIDE 0.9% 96 ML IV PRN (20:28)
[2020-06-21] MEDS: PANTOPRAZOLE 40 MG VIAL IV SCH (21:33)
[2020-06-21] MEDS: ENOXAPARIN 30 MG/0.3 ML SYRINGE SUBCUT SCH (21:33)
[2020-06-22] MEDS: INSULIN LISPRO 100 UNIT/ML SUBCUT SCH ×3 (00:59→11:35)
[2020-06-22] MEDS: HYDROCORTISONE 100 MG VIAL IV SCH ×2 (05:06→13:05)
[2020-06-22] MEDS: LEVOTHYROXINE 100 MCG VIAL IV SCH (05:57)
[2020-06-22] MEDS ORDERED: LORazepam 2 MG/1 ML VIAL IV PRN (09:35)
[2020-06-22] MEDS ORDERED: MORPHINE 4 MG/1 ML VIAL IV PRN (09:35)
[2020-06-22] MEDS: AMIODARONE 200 MG TABLET PER TUBE SCH (10:15)
[2020-06-22] MEDS: DOCUSATE SODIUM 100 MG/10 ML UDCUP PO SCH (10:15)
[2020-06-22] MEDS: FLUDROCORTISONE 0.1 MG TABLET PER TUBE SCH (10:15)
[2020-06-22] MEDS: POLYETHYLENE GLYCOL POWDER 17 GM PACK PO SCH (10:16)
[2020-06-22] MEDS: SODIUM BICARBONATE 650 MG TABLET PER TUBE SCH ×2 (10:16→15:15)
[2020-06-22] MEDS: PANTOPRAZOLE 40 MG VIAL IV SCH (21:21)
[2020-06-23] MEDS: LEVOTHYROXINE 100 MCG VIAL IV SCH (05:41)
[2020-06-23 16:22] VITALS: BP 83/27
== END 2020-06-23 16:50 | disposition expired | DRG 853 ==
LOC: N.ICU 20:30 → SUATTDRO 20:30 → SUPCPDRO 20:30 → N.TELEN 06-22 18:17
PROVIDERS: ADMIT Internal Medicine; ATTEND Hospitalist